=== PATIENT | male | born 1975 ===

== ENCOUNTER → 2023-04-24 | Outpatient (CLI) | payer OTHER ==
[~2023-04-24] MED LIST: CEPH500 PO; FLUT.05NI; HYDACE5 PO; SULTRIDS PO
[2023-04-24 17:54] LABS: BASOPHILS ABSOLUTE AUTO 0.04 K/mm3 (0.00-0.23); BASOPHILS PERCENT AUTO 1 % (0-2); EOSINOPHILS ABSOLUTE AUTO 0.05 K/mm3 (0.00-0.68); EOSINOPHILS PERCENT AUTO 1 % (0-6); Hematocrit 45.3 % (37.0-53.0); Hemoglobin 15.4 g/dL (13.5-17.5); IMMATURE GRAN ABSOLUTE AUTO 0.03 K/mm3 (0.00-0.10); IMMATURE GRAN PERCENT AUTO 0 % (0-1); LYMPHOCYTES ABSOLUTE AUTO 1.47 K/mm3 (0.84-5.20); LYMPHOCYTES PERCENT AUTO 19 % (21-46); MONOCYTES ABSOLUTE AUTO 0.88 K/mm3 (0.16-1.47); MONOCYTES PERCENT AUTO 11 % (4-13); Mean Corpuscular HGB 30.5 pg (26.0-34.0); Mean Corpuscular Volume 90 fL (80-100); Mean Platelet Volume 9.6 fL (9.1-12.4); NEUTROPHILS ABSOLUTE AUTO 5.25 K/mm3 (1.96-9.15); NEUTROPHILS PERCENT AUTO 68 % (41-73); Platelet Count 287 K/mm3 (150-400); RDW Coefficient Variation 13.2 % (11.7-14.2); RDW Standard Deviation 43.3 fL (35.1-46.3); Red Blood Cell Count 5.05 M/mm3 (4.30-5.90); White Blood Cell Count 7.72 K/mm3 (4.00-11.30)
[2023-04-26 09:13] LABS: A/G RATIO 2.4 (1.2-2.2); ALKALINE PHOSPHATASE, S 56 IU/L (44-121); ALT (SGPT) 41 IU/L (0-44); AST (SGOT) 25 IU/L (0-40); BILIRUBIN, TOTAL 0.9 mg/dL (0.0-1.2); BUN 23 mg/dL (6-24); BUN/CREATININE RATIO 20 (9-20); CALCIUM, SERUM 9.8 mg/dL (8.7-10.2); CARBON DIOXIDE, TOTAL 22 mmol/L (20-29); CHLORIDE, SERUM 101 mmol/L (96-106); CHOLESTEROL, TOTAL 240 mg/dL (100-199); CREATININE, SERUM 1.17 mg/dL (0.76-1.27); GLOBULIN, TOTAL 2.2 g/dL (1.5-4.5); GLUCOSE, SERUM 66 mg/dL (70-99); HDL CHOLESTEROL 68 mg/dL (>39); LDL CHOLESTEROL CALC 154 mg/dL (0-99); POTASSIUM, SERUM 4.3 mmol/L (3.5-5.2); PROTEIN, TOTAL, SERUM 7.4 g/dL (6.0-8.5); SODIUM, SERUM 140 mmol/L (134-144); TRIGLYCERIDES 103 mg/dL (0-149); VLDL CHOLESTEROL CAL 18 mg/dL (5-40)
== END ==
LOC: LAB SHORT 16:56 → LAB 16:56
PROVIDERS: Family Medicine
DX: R03.0 Elevated blood-pressure reading, without diagnosis of hypertension (principal)
CPT/HCPCS: 80053; 80061; 84443; 85025

== ENCOUNTER 2025-02-03 12:03 | Day surgery (SDC) | payer OTHER ==
[2025-02-03] VITALS (17 sets, daily range): BP systolic 110–149; BP diastolic 70–99
[~2025-02-03] VITALS: Ht 170.2 cm; Wt 71.4 kg
[~2025-02-03 12:03] MED LIST changes: +LOSA50 PO
--- NOTE | 2025-02-03 12:44 | NUR ---
History, Chart, Medications and Allergies reviewed before start of procedure. NECKLACE REMOVED AND PLACED IN BELONGINGS BAG WITH NAME ON IT. Patient States Post-Procedure ride home has been arranged.
[2025-02-03] MEDS ORDERED: Midazolam HCl 1MG / ML 2ML Vial ONE (12:48)
--- NOTE | 2025-02-03 13:00 | NUR ---
02/03/25 Christina Acevedo SCOPE: [id number]
--- NOTE | 2025-02-03 14:10 | NUR ---
Discharge instructions reviewed with patient. Patient verbalizes understanding. Copy given to patient to take home. Patient States Post-Procedure ride home has been arranged. Discharged via wheelchair to private car for ride home.
== END 2025-02-03 14:11 | disposition home or self-care (01) ==
LOC: ORSCMMR 12:03 → ORD 13:15 → ORSCMMR 14:11
PROVIDERS: Family Medicine
PROC: 0DJD8ZZ Inspection of Lower Intestinal Tract, Via Natural or Artificial Opening Endoscopic (ICD-10-PCS; principal; 2025-02-03 13:15)
DX: Z12.11 Encounter for screening for malignant neoplasm of colon (principal); K57.30 Diverticulosis of large intestine without perforation or abscess without bleeding; K64.0 First degree hemorrhoids; I10 Essential (primary) hypertension; F32.A Depression, unspecified; F41.1 Generalized anxiety disorder; K21.9 Gastro-esophageal reflux disease without esophagitis; Q85.00 Neurofibromatosis, unspecified; Z79.899 Other long term (current) drug therapy; Z87.891 Personal history of nicotine dependence
CPT/HCPCS: J2250; J2704; J7120